=== PATIENT | male | born 1990 | race Two or more races ===

== ENCOUNTER 2019-06-18 20:06 | Emergency (ER) | payer BC ==
[~2019-06-18] VITALS: Ht 175.3 cm; Wt 88.9 kg
--- NOTE | 2019-06-18 20:26 | NUR ---
PT CAME IN CO OF NVD, SORE THROAT, CHILLS, COUGH, RUNNY NOSE, AND BODY ACHES. HAS NOT TAKEN ANY TYLENOL OR MOTRIN. PT IS RESTING ON GURNEY. AWAITING MD. 98% ON RM AIR.
[2019-06-18 21:15] VITALS: BP 135/85
--- NOTE | 2019-06-18 21:15 | NUR ---
TO SEE PT AT THIS TIME
[2019-06-18 21:47] LABS: RAPID INFLUENZA A POSITIVE (Negative); RAPID INFLUENZA B Negative (Negative)
== END 2019-06-18 22:20 | disposition home or self-care (01) ==
LOC: ED 22:00
DX: J10.1 Influenza due to other identified influenza virus with other respiratory manifestations (principal)
CPT/HCPCS: 71045; 87400; 99284